=== PATIENT | male | born 1980 | race Caucasian/White ===

== ENCOUNTER 2021-03-22 19:36 | Outpatient (CLI) | payer OTHER | END 2021-03-22 23:00 | disposition home or self-care (01) | LOC: LAB 19:36 | PROVIDERS: ATTEND Obstetrics & Gynecology | DX: Z20.818 Contact with and (suspected) exposure to other bacterial communicable diseases (principal); Z20.828 Contact with and (suspected) exposure to other viral communicable diseases ==

== ENCOUNTER 2023-01-30 08:33 | Emergency (ER) | payer OTHER ==
[~2023-01-30] VITALS: Ht 180.3 cm; Wt 90.7 kg
[2023-01-30] MEDS ORDERED: ZYRTEC10 M3 PO (10:26)
[2023-01-30] MEDS ORDERED: FLONASE16 GM NGT (10:26)
== END 2023-01-30 10:41 | disposition home or self-care (01) ==
LOC: ER 08:33
PROVIDERS: General Practice
DX: R09.81 Nasal congestion (principal); Z20.822 Contact with and (suspected) exposure to COVID-19
CPT/HCPCS: 36415; 96372; 99284; J1100; J1885